=== PATIENT | male | born 1945 | race Caucasian/White ===

== ENCOUNTER 2017-10-23 07:15 | Inpatient (IN) | payer OTHER ==
[~2017-10-23] VITALS: Ht 162.6 cm; Wt 90.7 kg
[2017-10-23] MEDS ORDERED: NORVASC10 MG PO (09:15)
[2017-10-23] MEDS ORDERED: VASOTEC5 MG PO (09:15)
[2017-10-23] MEDS ORDERED: VASOTEC2.5 MG PO (09:16)
[2017-10-23] MEDS ORDERED: GLUCOPHAGE XR500 MG PO (09:16)
== END 2017-10-28 12:42 | disposition home or self-care (01) | DRG 470 ==
LOC: SURH 10-26 06:18 → O/R 10-26 06:18 → SURH 10-26 07:15 → EDBD 10-26 07:15 → SURH 10-26 10:51
PROVIDERS: Orthopaedic Surgery
PROC: 0SRD0J9 Replacement of Left Knee Joint with Synthetic Substitute, Cemented, Open Approach (ICD-10-PCS; principal; 2017-10-26 12:30)
DX: M17.12 Unilateral primary osteoarthritis, left knee (principal); I10 Essential (primary) hypertension; R26.89 Other abnormalities of gait and mobility